=== PATIENT | female | born 1980 | race Caucasian/White ===

== ENCOUNTER 2018-02-09 15:47 | Emergency (ER) | payer OTHER, SELFPAY ==
[2018-02-09 17:35] LABS: Absolute Lymphocytes (CBC) 1.8 K/uL (0.7-4.9); Absolute Monocytes 0.5 K/uL (0.1-1.3); Absolute Neutrophil 4.2 K/uL (1.8-8.0); Basophils % 0.9 % (0-1.3); Eosinophils % 1.3 % (0-4.4); Hematocrit 40.8 % (36.0-45.0); Lymphocytes % 26.4 % (15.3-44.8); MPV 7.9 fL (7.6-11.3); Monocytes % 7.4 % (3.3-12.3); RBC Red Blood Cell Count 4.38 M/uL (3.86-4.86)
[2018-02-09 17:37] LABS: Protime INR 0.97
[2018-02-09 17:47] LABS: ALT/SGPT 43 U/L (12-78); AST/SGOT 26 U/L (15-37); Alkaline Phosphatase 84 U/L (45-117); BUN Blood Urea Nitrogen 10 mg/dL (7-18); Bicarbonate 27 mmol/L (21-32); Bilirubin Direct 0.1 mg/dL (0-0.2); Bilirubin Total 0.4 mg/dL (0.2-1.0); Glucose Level 107 mg/dL (74-106); Magnesium 2.3 mg/dL (1.8-2.4); NT PRO-BNP 17 pg/mL (<125); Potassium 3.9 mmol/L (3.5-5.1); Protein, Total 8.1 g/dL (6.4-8.2); Sodium Level 136 mmol/L (136-145); Troponin (Emerg Dept Use Only) < 0.02 ng/mL (0.0-0.045)
--- NOTE | 2018-02-09 18:30 | RAD REPORT ---
EXAM DESCRIPTION: Kristina Single View02/09/2018 6:14 pm CLINICAL HISTORY: Chest pain COMPARISON: none FINDINGS: The lungs appear clear of acute infiltrate. The heart is normal size IMPRESSION: No acute abnormalities displayed
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
--- NOTE | 2018-02-10 07:47 | EKG ---
Test Date: 2018-02-09 Test Time: 16:13:47 Office Inspector: KEMAL MEASUREMENT RESULTS: Intervals: Rate: 93 NC: 144 QRSD: 86 QT: 364 QTc: 452 [place]: P: 73 NC: 144 QRS: 140 T: 39 INTERPRETIVE STATEMENTS: Normal sinus rhythm Right axis deviation Pulmonary disease pattern Abnormal ECG No previous ECG available for comparison Electronically Signed On 02-10-18 07:46:01 PERINATAL EDUCATOR by Axel Perry
== END 2018-02-09 19:05 | disposition home or self-care (01) ==
LOC: ER 15:47
DX: R07.9 Chest pain, unspecified (principal); F32.9 Major depressive disorder, single episode, unspecified; Z72.0 Tobacco use
CPT/HCPCS: 36415; 71045; 80048; 80076; 83735; 83880; 84484; 85025; 85379; 85610; 93005; 99285